=== PATIENT | female | born 1940 | race Caucasian/White ===

== ENCOUNTER 2017-05-24 13:17 | Outpatient (CLI) | payer MEDICARE | END 2017-05-24 13:19 | LOC: CARD 13:17 | PROVIDERS: ATTEND Internal Medicine Cardiovascular Disease | DX: I15.9 Secondary hypertension, unspecified (principal) ==

== ENCOUNTER 2017-07-26 12:41 | Outpatient (CLI) | payer MEDICARE, OTHER ==
[2017-07-26 14:57] LABS: eGFR (African) > 60; eGFR (Non-African) > 60
== END 2017-07-26 12:42 ==
LOC: CARD 12:41
PROVIDERS: ATTEND Internal Medicine Cardiovascular Disease
DX: I42.9 Cardiomyopathy, unspecified (principal); I10 Essential (primary) hypertension; E78.5 Hyperlipidemia, unspecified; R01.1 Cardiac murmur, unspecified; I82.401 Acute embolism and thrombosis of unspecified deep veins of right lower extremity
CPT/HCPCS: 36415; 80048; G0463

== ENCOUNTER 2017-10-11 13:37 | Outpatient (CLI) | payer MEDICARE, OTHER ==
[2017-10-11 16:48] LABS: eGFR (African) > 60; eGFR (Non-African) > 60
== END 2017-10-11 13:40 ==
LOC: CARD 13:37
PROVIDERS: ATTEND Internal Medicine Cardiovascular Disease
DX: I42.9 Cardiomyopathy, unspecified (principal); I82.409 Acute embolism and thrombosis of unspecified deep veins of unspecified lower extremity; I10 Essential (primary) hypertension; E78.5 Hyperlipidemia, unspecified; Z99.3 Dependence on wheelchair
CPT/HCPCS: 36415; 80048; G0463

== ENCOUNTER 2017-10-17 13:26 | Outpatient (CLI) | payer MEDICARE, OTHER ==
--- NOTE | 2017-10-17 16:18 | Diagnostic Imaging Report ---
STARLA ANTHONY [facility] [address] [facility] [address] [place], [place]. [address] Report Submission Date: Oct 17, 2017 2:02:35 PM CDT Patient Study Name: PAUL ALSTON Date: Oct 17, 2017 1:37:04 PM CDT Modality Type: CT\SR Gender: F Description: CT BRAIN W/O CONTRAST : 40 Institution: [facility] Physician: STARLA ANTHONY Head CT without contrast History: Headaches. History of mild dementia Technique: Axial images were obtained from the skullbase to the vertex without IV contrast. There are no comparison studies. Findings: There is mild age-related cortical volume loss. Fairly extensive areas of periventricular to subcortical white matter lucency are present symmetrically bilaterally consistent with moderate to severe small vessel ischemic disease. There is no positive mass effect or intra/extra-axial hemorrhage. There has been scleral banding. Visualized paranasal sinuses and mastoid air cells are clear and the calvarium is intact. Impression: Moderate to severe small vessel ischemic disease. No acute intracranial abnormality. Electronically signed on Oct 17, 2017 2:02:35 PM CDT by: Wanda CONTRERAS
== END 2017-10-17 13:28 ==
LOC: RAD 13:26
PROVIDERS: ATTEND Family Medicine
DX: R51 Headache (principal)
CPT/HCPCS: 70450